=== PATIENT | male | born 1975 | race African-American/Black ===

== ENCOUNTER 2017-07-04 23:41 | Emergency (ER) | payer MEDICAID ==
[~2017-07-04] VITALS: Ht 182.9 cm; Wt 81.6 kg
[2017-07-04 23:42] VITALS: BP_SYST 111
--- NOTE | 2017-07-04 23:54 | NUR ---
Patient to ER bed 6 to gown for evaluation. Side rails up.
[2017-07-05] MEDS ORDERED: PHENYTOIN 100 MG CAPSULE PO ONE
--- NOTE | 2017-07-05 00:07 | NUR ---
Pt in bed 6 with hx of seizures and pyschosis, bib ALS for bizarre behavior, (lying in position , yelling at voices to" leave me alone") Dr Mccarty aware.
--- NOTE | 2017-07-05 00:08 | NUR ---
ER at bedside examining patient.
--- NOTE | 2017-07-05 00:37 | NUR ---
Patient resting quietly. No acute distress noted. Vital signs within normal range.
--- NOTE | 2017-07-05 01:00 | NUR ---
Tolerating snack and juice.VSS, Dr Abernathy aware.
--- NOTE | 2017-07-05 02:00 | NUR ---
Patient resting quietly. No acute distress noted. Vital signs within normal range.
--- NOTE | 2017-07-05 03:02 | NUR ---
Resting comfortably awakes easily.Tolerating po fluids well.
[2017-07-05 03:30] VITALS: BP_SYST 121
--- NOTE | 2017-07-05 03:30 | NUR ---
Patient given written and verbal discharge instructions and verbalizes understanding. ER MD discussed with patient the results and treatment provided. Patient in stable condition. ID arm band removed. No Rx given. Patient educated on pain management and to follow up with PMD. Pain Scale 0/10. Opportunity for questions provided and answered. Medication side effect fact sheet provided.
== END 2017-07-05 03:30 | disposition home or self-care (01) ==
LOC: SED 23:41
DX: G40.909 Epilepsy, unspecified, not intractable, without status epilepticus (principal); E46 Unspecified protein-calorie malnutrition; Z59.0 Homelessness
CPT/HCPCS: 99283; J7030

== ENCOUNTER 2017-07-05 12:51 | Emergency (ER) | payer MEDICAID ==
[~2017-07-05] VITALS: Ht 180.3 cm; Wt 86.2 kg
[2017-07-05 13:05] VITALS: BP_SYST 105
--- NOTE | 2017-07-05 13:42 | NUR ---
Patient to ER bed 05 to gown for evaluation. Side rails up. Report received from ALFREDITO Roth.
--- NOTE | 2017-07-05 13:45 | NUR ---
Pt was brought in by BLS. Per EMT, pt was found by civilian laying on the bench and called 911. On scene, pt complained of sharp pain to chest that started yesterday. Pt denies N/V or fever. Pt appears to have poor hygiene. No other injuries/complaints per patient or noted. Addendum: 07/05/17 at 1800 by [email or web address] No shortness of breath noted.
[2017-07-05 13:57] LABS: BILIRUBIN,URINE NEGATIVE (NEGATIVE); BLOOD, URINE NEGATIVE (NEGATIVE); CLARITY/URINE CLEAR (CLEAR); COLOR,URINE YELLOW (YELLOW); GLUCOSE,URINE NEGATIVE (NEGATIVE); KETONES,URINE NEGATIVE (NEGATIVE); LEUKOCYTE ESTERASE ,URINE NEGATIVE (NEGATIVE); NITRITE, URINE NEGATIVE (NEGATIVE); PROTEIN URINE NEGATIVE (NEGATIVE); UROBILINOGEN,URINE 0.2 (0.2-1.0)
--- NOTE | 2017-07-05 14:10 | NUR ---
ER Dr. Ndiaye at bedside examining patient.
[2017-07-05 14:22] LABS: BARBITURATE, URINE POSITIVE (NEG <=200); BENZODIAZEPINE, URINE NEGATIVE (NEG <=150); CANNABINOID, URINE NEGATIVE (NEG <=50); COCAINE, URINE NEGATIVE (NEG <=150); METHAMPHETAMINES SCREEN,URINE NEGATIVE (NEG <=500); OPIATE, URINE NEGATIVE (NEG <=100); PHENCYCLIDINE SCREEN,URINE NEGATIVE (NEG <=25); UR TRICYCLIC ANTIDEPRESSANTS NEGATIVE (NEG <=300); URINE AMPHETAMINE NEGATIVE (NEG <=500); URINE METHADONE NEGATIVE (NEG <=200); URINE OXYCODONE SCREEN NEGATIVE (NEG <=100); URINE PROPOXYPHENE SCREEN NEGATIVE (NEG <=300)
[2017-07-05 14:46] LABS: BASOPHILS # (AUTO) 0.1 K/uL (0.0-0.2); BASOPHILS % (AUTO) 2.2 % (0.0-2.0); EOSINOPHILS # (AUTO) 0.2 K/uL (0.0-0.4); EOSINOPHILS % (AUTO) 3.1 % (0.0-4.0); HEMATOCRIT 42.5 % (36-54); HEMOGLOBIN 13.8 g/dL (14.0-18.0); LYMPHOCYTES # (AUTO) 1.8 K/uL (1.0-5.5); LYMPHOCYTES % (AUTO) 27.9 % (20.5-51.5); MEAN CORPUSCULAR HEMOGLOBIN 29 pg (27-31); MEAN CORPUSCULAR HGB CONC 32 % (32-36); MEAN CORPUSCULAR VOLUME 89 fL (79.0-98.0); MONOCYTES # (AUTO) 0.6 K/uL (0.0-1.0); MONOCYTES % (AUTO) 10.2 % (1.7-9.3); NEUTROPHILS # (AUTO) 3.6 K/uL (1.8-7.7); NEUTROPHILS % (AUTO) 56.6 % (40.0-70.0); PLATELET COUNT (AUTO) 327 K/uL (130-430); RED BLOOD CELL COUNT(AUTO) 4.79 MIL/uL (4.2-6.2); RED CELL DISTRIBUTION WIDTH 17.1 % (9.0-15.0); WHITE BLOOD COUNT (AUTO) 6.4 K/uL (4.8-10.8)
[2017-07-05 14:57] LABS: ANION GAP 7 (5-15); CALCIUM 9.1 mg/dL (8.4-11.0); CHLORIDE 101 mmol/L (98-107); CREATININE 0.68 mg/dL (0.55-1.30); GLUCOSE 85 mg/dL (70-99); POTASSIUM 4.2 mmol/L (3.5-5.1); SODIUM SERUM 136 mmol/L (136-145); UREA NITROGEN, BLOOD 8 mg/dL (8-21)
[2017-07-05 14:59] LABS: GFR AFRICAN AMERICAN 165 mL/min (>90)
--- NOTE | 2017-07-05 15:03 | NUR ---
Pt resting comfortably in hospital bed. No acute distress. Will continue to monitor.
[2017-07-05 15:10] LABS: INR 1.2 (0.80-1.20); PROTHROMBIN TIME 12.2 SECS (9.5-12.5)
[2017-07-05 15:11] LABS: ALANINE AMINOTRANSFERASE 16 U/L (12-78); ALBUMIN 3.7 g/dL (3.4-4.8); ASPARTATE AMINOTRANSFERASE 20 U/L (10-37); TOTAL BILIRUBIN 0.5 mg/dL (0.0-1.0)
[2017-07-05 15:15] LABS: ALCOHOL, BLOOD < 3 mg/dL (<10)
[2017-07-05] MEDS ORDERED: PHENYTOIN SODIUM 250 MG/5 ML INJ. VIAL IV ONE (16:00)
[2017-07-05] MEDS ORDERED: PHENYTOIN SODIUM INJ 1,000 MG in NS 100 ML IV ONE (16:00)
--- NOTE | 2017-07-05 16:25 | NUR ---
Pt needed to urinate, urinal was given. Pt resting comfortably in bed. will continue to monitor.
--- NOTE | 2017-07-05 17:12 | NUR ---
Dietary brought regular tray for patient. Pt eating at bedside.
--- NOTE | 2017-07-05 18:16 | NUR ---
Note che in EDM - 07/05/17 at 1931 by CESAR Pt resting comfortably in hospital bed. no acute distress. will continue to monitor.
--- NOTE | 2017-07-05 18:16 | NUR ---
Pt resting comfortably in hospital bed. No acute distress. Will continue to monitor.
--- NOTE | 2017-07-05 19:29 | NUR ---
Domonique bolton in EDM - 07/05/17 at 1931 by CESAR Report given to ALFREDITO Enriquez. All care endorsed.
--- NOTE | 2017-07-05 19:29 | NUR ---
Report given to ALFREDITO Enriquez. All care endorsed.
--- NOTE | 2017-07-05 19:30 | NUR ---
Pt is resting comfortably. VSS. Will continue to monitor. No distress noted. AAOx4.
[2017-07-05 21:04] VITALS: BP_SYST 118
--- NOTE | 2017-07-05 21:04 | NUR ---
Patient given written and verbal discharge instructions and verbalizes understanding. ER MD discussed with patient the results and treatment provided. Patient in stable condition. ID arm band removed. Rx of Dilantin given. Patient educated on pain management and to follow up with PMD. Pain Scale 0/10. Opportunity for questions provided and answered. Medication side effect fact sheet provided.
== END 2017-07-05 21:04 | disposition home or self-care (01) ==
LOC: SED 12:51
DX: R07.89 Other chest pain (principal); G40.909 Epilepsy, unspecified, not intractable, without status epilepticus; Z59.0 Homelessness
CPT/HCPCS: 36415; 71045; 80053; 80185; 80307; 81003; 82550; 84484; 85025; 85610; 85730; 93005; 96365; 99285; G0482; J1165